=== PATIENT | female | born 1970 | race Caucasian/White ===

== ENCOUNTER → 2016-11-16 | Outpatient (CLI) | payer BC ==
[~2016-11-16] MED LIST: Gadobutrol 7.5 mMOL/7.5 ML SDV IVPUSH STA
--- NOTE | 2016-11-17 08:55 | MR ---
EXAMINATION: MRI of the brain with and without contrast. MRA head without contrast. TECHNIQUE: Multiplanar and multisequence imaging of the brain without and following the administrati on of 7 mL of Gadavist. Gsef-[id number]-[id number] images obtained through the head with thick slab MIP reconstr uctions. HISTORY: Trigeminal neuralgia. FINDINGS: MRI brain: Cerebral hemispheres and the deep nuclei are without hemorrhage, mass, edema, gliosis, en hancement or atrophy. No extraaxial collections or hemorrhage. There is a 1.1 cm left frontoparieta l convexity dural based mass which demonstrates diffuse homogeneous enhancement. There is a mild sy mmetric prominence the lateral ventricles. The brainstem and cerebellum are without hemorrhage, mass , edema, gliosis, enhancement or atrophy. The carotid basilar artery flow voids are intact. The otomastoid airspaces are clear. No internal auditory canal or cerebellopontine angle masses or enhancement. Mild mucosal thickening within the maxillary sinuses. Globes, optic nerves, orbital api bibiana, optic chiasm, optic tracts, and visual cortices are unremarkable. Pituitary and sella turcic a are unremarkable. The trigeminal nerve roots appear normal. No abnormal enhancement. The anterior -inferior cerebellar artery does of but the right trigeminal nerve. No meningeal enhancement. The craniocervical junction is unremarkable without Chiari malformation. No siderosis or evidence of vascular malformation. The calvarium is intact. MRA head: The distal internal carotid arteries appear normal. The vertebral basilar arteries appear normal. Anterior, posterior, and middle cerebral arteries are normal. No aneurysm identified. The p osterior communicating arteries are normal. The anterior communicating artery is normal. IMPRESSION: 1. 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 2. There is a small vessel abutting the right trigeminal nerve root, likely the anterior inferior ce rebellar artery. 3. Mild symmetric prominence of the lateral ventricles.
== END ==
LOC: MW.MRI 08:16
PROVIDERS: ATTEND Psychiatry & Neurology Neuromuscular Medicine
DX: G50.0 Trigeminal neuralgia (principal); D32.0 Benign neoplasm of cerebral meninges
CPT/HCPCS: 70544; 70544-26; 70553; 70553-26

== ENCOUNTER → 2016-12-07 | Outpatient (CLI) | payer BC ==
[2016-12-07 10:56] LABS: CHLORIDE,CL 103 mmol/L (98-110); SODIUM,NA 139 mmol/L (136-146)
== END | disposition home or self-care (01) ==
LOC: MW.CHNEURO 10:00
PROVIDERS: ATTEND Psychiatry & Neurology Neuromuscular Medicine
DX: G50.0 Trigeminal neuralgia (principal)
CPT/HCPCS: 36415; 80053; 80156; 85025

== ENCOUNTER 2021-10-25 10:06 | Day surgery (SDC) | payer BC ==
[~2021-10-25 10:06] MED LIST changes: -Gadobutrol 7.5 mMOL/7.5 ML SDV IVPUSH STA; +Lactated Ringers 1,000 ML IV SCH; +Propofol 200 MG/20 ML SDV ONE; +Sodium Chloride 0.9% 10 ML Syringe FLUSH PRN; +Sodium Chloride 0.9% 2.5 ML Syringe FLUSH PRN; +Sodium Chloride 0.9% 20 ML SDV IV PRN; +fentaNYL 100 MCG/2 ML SDV ONE
[2021-10-25] MEDS ORDERED: ePHEDrine 50 MG/ML SDV ONE (13:03)
[2021-10-25 13:37] VITALS: BP 127/71; PULSE 67
== END 2021-10-25 13:47 | disposition home or self-care (01) ==
LOC: MW.SDS 10:06
PROVIDERS: ATTEND Surgery
DX: R19.4 Change in bowel habit (principal); K64.3 Fourth degree hemorrhoids; I10 Essential (primary) hypertension; Z79.899 Other long term (current) drug therapy; Z98.890 Other specified postprocedural states
CPT/HCPCS: 45380; 81025; J2704; J3010; J7120; 00811